=== PATIENT | female | born 1970 | race Two or more races ===

== ENCOUNTER 2018-05-13 00:36 | Emergency (ER) | payer MEDICARE, MEDICAID ==
[~2018-05-13] VITALS: Ht 152.4 cm; Wt 68.0 kg
[~2018-05-13 00:36] MED LIST: ASPI81CH43 PO; ATOR20TA50 PO; CAR3125T PO; CLO01T PO; CLOP75TA28 PO; FURO40TA4 PO; INSUINJ37 SUBCUT; MESA0.37 PO; MYCO250C; NITR100C44 PO; OMEG100078 PO; PANT40T PO; PRE1T PO; SUCR1SUS10 PO; TACR1CAP4 PO
[2018-05-13] MEDS ORDERED: SODIUM BICARBONATE 8.4% INJ 50ML SYRINGE IV ONE (00:40)
[2018-05-13] MEDS ORDERED: DEXTROSE (50%) 50ML SYRG IV ONE (00:40)
[2018-05-13] MEDS ORDERED: SODIUM BICARBONATE 8.4 % INJ 50ML VIAL IV ONE (00:40)
[2018-05-13] MEDS ORDERED: EPINEPHrine HCL 1 MG/10 ML SYRG IV ONE ×2 (00:40)
[2018-05-13] MEDS ORDERED: CALCIUM CHLOR(10%) 100MG/ML 10ML SYRINGE IV ONE ×2 (00:40→01:21)
[2018-05-13] MEDS ORDERED: SODIUM BICARBONATE 8.4% INJ 50ML SYRINGE ONE ×3 (00:53→01:06)
[2018-05-13] MEDS ORDERED: NOREPINEPHRINE 8 MG/250ML KIT 250 ML IV ONE (01:14)
[2018-05-13] MEDS ORDERED: EPINEPHrine HCL 1 MG/10 ML SYRG ONE ×2 (01:21→01:33)
== END 2018-05-13 02:49 | disposition expired ==
LOC: EDBD 00:36 → ER 00:39
DX: I46.9 Cardiac arrest, cause unspecified (principal); E11.22 Type 2 diabetes mellitus with diabetic chronic kidney disease; I13.2 Hypertensive heart and chronic kidney disease with heart failure and with stage 5 chronic kidney disease, or end stage renal disease; N18.6 End stage renal disease; J44.9 Chronic obstructive pulmonary disease, unspecified; E78.5 Hyperlipidemia, unspecified; Z86.73 Personal history of transient ischemic attack (TIA), and cerebral infarction without residual deficits; Z79.4 Long term (current) use of insulin; Z79.2 Long term (current) use of antibiotics; Z79.82 Long term (current) use of aspirin
CPT/HCPCS: 31500; 36600; 82805; 92950; 99285; J0171; J7042; 93005; 94002